=== PATIENT | female | born 1955 | race Two or more races ===

== ENCOUNTER 2020-09-08 13:16 | Emergency (ER) | payer OTHER ==
[~2020-09-08] VITALS: Ht 167.6 cm; Wt 77.1 kg
[~2020-09-08 13:16] MED LIST: CALCIUM1 TAB PO; EVISTA60 MG PO; PEPCID20 MG PO
== END 2020-09-08 16:35 | disposition home or self-care (01) ==
LOC: ER 13:16
DX: R03.0 Elevated blood-pressure reading, without diagnosis of hypertension (principal)

== ENCOUNTER 2022-11-26 15:01 | Emergency (ER) | payer OTHER ==
[~2022-11-26] VITALS: Ht 167.6 cm; Wt 73.5 kg
== END 2022-11-26 17:06 | disposition home or self-care (01) ==
LOC: ER 15:01
DX: M79.672 Pain in left foot (principal); M79.671 Pain in right foot

== ENCOUNTER 2023-07-27 20:35 | Emergency (ER) | payer OTHER ==
[~2023-07-27] VITALS: Ht 167.6 cm; Wt 74.8 kg
[2023-07-27] MEDS ORDERED: NORFLEX100MG PO (22:59)
[2023-07-27] MEDS ORDERED: MEDROLPACK PO (22:59)
[2023-07-27] MEDS ORDERED: DICLOFENAC POTA50 MG PO (22:59)
== END 2023-07-28 01:13 | disposition home or self-care (01) ==
LOC: ER 20:35
DX: M17.12 Unilateral primary osteoarthritis, left knee (principal); M25.562 Pain in left knee
CPT/HCPCS: 73560; 96372; 99284; J1100; J1885; J2360